=== PATIENT | female | born 1960 | race Caucasian/White ===

== ENCOUNTER 2021-10-26 09:34 | Emergency (ER) | payer BC ==
[2021-10-26 10:46] LABS: Urine Blood Trace-intact (Negative); Urine Glucose Negative (Negative); Urine Protein Negative (Negative)
--- NOTE | 2021-10-26 10:52 | ER ---
Nurse's Notes [facility] Name: Bethany Al Age: 61 yrs Sex: Female : 1960 Arrival Date: 10/26/2021 Time: 09:38 Bed 13 Private MD: Diagnosis: Fever, unspecified;Other malaise and fatigue;Hemochromatosis, unspecified Presentation: 10/26 09:48 Chief complaint: Patient states: saw PCP Saturday for fever and possible UTI. However the ap3 patient's lab results showed no UTI. 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 Patient complains of headaches, off and on fevers and joint pain. Patient had 2 negative COVID tests. Patient states "My friend had giovana mountain spotted fever last year and he said I have the same symptoms he had when he had it.". Coronavirus screen: Client presents with at least one sign or symptom that may indicate coronavirus-19. Ebola Screen: No symptoms or risks identified at this time. Initial Sepsis Screen: Does the patient meet any 2 criteria? No. Patient's initial sepsis screen is negative. Does the patient have a suspected source of infection? No. Patient's initial sepsis screen is negative. Risk Assessment: Do you want to hurt yourself or someone else? Patient reports no desire to harm self or others. Onset of symptoms was October 11, 2021. 09:48 Method Of Arrival: Ambulatory ap3 09:48 Acuity: BRAD 4 ap3 10:35 Acuity: BRAD 3 iw Triage Assessment: 09:55 General: Appears in no apparent distress. Behavior is calm, cooperative, appropriate ap3 for age. Pain: Complains of pain in all over joint pain. Neuro: Level of Consciousness is awake, alert, obeys commands, Oriented to person, place, time, situation, Appropriate for age Moves all extremities. Speech is normal. Cardiovascular: Patient's skin is warm and dry. Respiratory: Airway is patent Respiratory effort is even, unlabored, Respiratory pattern is regular, symmetrical. Historical: - Allergies: 09:53 No Known Allergies; ap3 - Home Meds: 09:53 None [Active]; ap3 - PMHx: 09:53 Hemochromatosis; ap3 - Immunization history:: Client reports receiving the 2nd dose of the Covid vaccine. - Social history:: Smoking status: Patient/guardian denies using tobacco. Screenin:55 Abuse screen: Denies threats or abuse. Nutritional screening: No deficits noted. ap3 Tuberculosis screening: No symptoms or risk factors identified. 12:55 Fall Risk None identified. iw Assessment: 11:40 General: Appears in no apparent distress. comfortable, Behavior is calm, cooperative. ww Neuro: Booker Agitation-Sedation Scale (RASS): 0 - Alert and Calm Level of Consciousness is awake, alert, obeys commands, Oriented to person, place, time, situation, Speech is normal. Cardiovascular: Capillary refill < 3 seconds Patient's skin is warm and dry. Respiratory: Airway is patent Respiratory effort is even, unlabored, Respiratory pattern is regular, symmetrical. Derm: No signs and/or symptoms reported regarding the dermatologic system. Skin is healthy with good turgor. Musculoskeletal: Circulation, motion, and sensation intact. 12:21 Reassessment: Patient appears in no apparent distress at this time. No changes from previously documented assessment. Patient and/or family updated on plan of care and expected duration. Pain level reassessed. Patient is alert, oriented x 3, equal unlabored respirations, skin warm/dry/pink. Vital Signs: 09:48 BP 136 / 76; Pulse 80; Resp 17; Temp 98.3; Pulse Ox 100% ; Weight 56.7 kg; Height 5 ft. ap3 3 in. (160.02 cm); 09:48 Body Mass Index 22.14 (56.70 kg, 160.02 cm) ap3 ED Course: 09:38 Patient arrived in ED. as 09:52 Triage completed. ap3 09:55 Arm band placed on right wrist. ap3 10:07 Karri Gallego MD is Attending Physician. mynor 10:17 Mine Gordon, RN is Primary Nurse. ww 10:50 Tej Alvarez MD is Referral Physician. mynor 10:58 US Abdomen Limited In Process Unspecified. EDMS 11:25 Inserted saline lock: 22 gauge in right antecubital area, using aseptic technique. zm Blood collected. 11:25 Comprehensive Metabolic Panel Sent. zm 11:25 CBC with Diff Sent. zm 11:28 Chest Single View XRAY In Process Unspecified. EDMS 12:22 Patient has correct armband on for positive identification. Bed in low position. Call ww light in reach. Side rails up X 1. Warm blanket given. 12:54 No provider procedures requiring assistance completed. IV discontinued, intact, iw bleeding controlled, No redness/swelling at site. Pressure dressing applied. Administered Medications: 11:29 Drug: NS 0.9% 500 ml Route: IV; Rate: bolus; Site: right antecubital; ww 11: Drug: Doxycycline 200 mg Route: PO; ww Medication: 12:54 VIS not applicable for this client. iw Outcome: 10:51 Discharge ordered by . mynor 12:54 Discharged to home ambulatory. iw 12:54 Condition: good 12:54 Discharge instructions given to patient, Instructed on discharge instructions, follow up and referral plans. Demonstrated understanding of instructions, follow-up care, medications, Prescriptions given X 1. 12:55 Patient left the ED. iw Signatures: Dispatcher [employer] EDMS Karri Gallego MD MD cha Martinez, Amelia as Williams, Irene, RN RN iw Prokisch, Amanda, RN RN ap3 Mine Gordon RN RN ww Martinez, Zaina zm Corrections: (The following items were deleted from the chart) 09:56 09:48 Chief complaint: Patient states: saw PCP Saturday for fever and possible UTI. ap3 However the patient's lab results showed no UTI. 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 Patient complains of headaches, off and on fevers and joint pain. Patient had 2 negative COVID tests. ap3 : 12:20 General: Appears in no apparent distress. comfortable, Behavior is calm, ww cooperative, ww 12:20 Neuro: Booker Agitation-Sedation Scale (RASS): 0 - Alert and Calm Level of ww Consciousness is awake, alert, obeys commands, Oriented to person, place, time, situation, Speech is normal, ww 12:20 Cardiovascular: Capillary refill < 3 seconds Patient's skin is warm and dry. ww ww : 12:20 Respiratory: Airway is patent Respiratory effort is even, unlabored, Respiratory ww pattern is regular, symmetrical, ww 12:20 Derm: No signs and/or symptoms reported regarding the dermatologic system. Skin ww is healthy with good turgor, ww 12:20 Musculoskeletal: Circulation, motion, and sensation intact. ww ww
--- NOTE | 2021-10-26 10:52 | EDPHYS ---
Physician Documentation [facility] Name: Bethany Al Age: 61 yrs Sex: Female : 1960 Arrival Date: 10/26/2021 Time: 09:38 Bed 13 Private MD: ED Physician Karri Gallego HPI: 10/26 10:47 This 61 yrs old Female presents to ER via Ambulatory with complaints of mynor Fever, Headache. 10:47 The patient reports fever, that was measured at 101 degrees Fahrenheit. Onset: The mynor symptoms/episode began/occurred 8 day(s) ago. Modifying factors: there are no obvious modifying factors. Associated signs and symptoms: Pertinent positives: arthralgias, cough, night sweats. Severity of symptoms: At their worst the symptoms were mild in the emergency department the symptoms are unchanged. The patient has not experienced similar symptoms in the past. Historical: - Allergies: 09:53 No Known Allergies; ap3 - Home Meds: 09:53 None [Active]; ap3 - PMHx: 09:53 Hemochromatosis; ap3 - Immunization history:: Client reports receiving the 2nd dose of the Covid vaccine. - Social history:: Smoking status: Patient/guardian denies using tobacco. ROS: 10:47 Eyes: Negative for injury, pain, redness, and discharge, ENT: Negative for injury, mynor pain, and discharge, Neck: Negative for injury, pain, and swelling, Cardiovascular: Negative for chest pain, palpitations, and edema, Respiratory: Negative for shortness of breath, cough, wheezing, and pleuritic chest pain, Abdomen/GI: Negative for abdominal pain, nausea, vomiting, diarrhea, and constipation, Back: Negative for injury and pain, : Negative for injury, bleeding, discharge, and swelling, MS/Extremity: Negative for injury and deformity, Skin: Negative for injury, rash, and discoloration, Neuro: Negative for headache, weakness, numbness, tingling, and seizure. 10:47 Constitutional: Positive for body aches, chills, fatigue, fever, malaise. Exam: 10:47 Constitutional: This is a well developed, well nourished patient who is awake, alert, mynor and in no acute distress. Head/Face: Normocephalic, atraumatic. Eyes: Pupils equal round and reactive to light, extra-ocular motions intact. Lids and lashes normal. Conjunctiva and sclera are non-icteric and not injected. Cornea within normal limits. Periorbital areas with no swelling, redness, or edema. ENT: Nares patent. No nasal discharge, no septal abnormalities noted. Tympanic membranes are normal and external auditory canals are clear. Oropharynx with no redness, swelling, or masses, exudates, or evidence of obstruction, uvula midline. Mucous membranes moist. Neck: Trachea midline, no thyromegaly or masses palpated, and no cervical lymphadenopathy. Supple, full range of motion without nuchal rigidity, or vertebral point tenderness. No Meningismus. Chest/axilla: Normal chest wall appearance and motion. Nontender with no deformity. No lesions are appreciated. Cardiovascular: Regular rate and rhythm with a normal S1 and S2. No gallops, murmurs, or rubs. Normal PMI, no JVD. No pulse deficits. Respiratory: Lungs have equal breath sounds bilaterally, clear to auscultation and percussion. No rales, rhonchi or wheezes noted. No increased work of breathing, no retractions or nasal flaring. Abdomen/GI: Soft, non-tender, with normal bowel sounds. No distension or tympany. No guarding or rebound. No evidence of tenderness throughout. Back: No spinal tenderness. No costovertebral tenderness. Full range of motion. Skin: Warm, dry with normal turgor. Normal color with no rashes, no lesions, and no evidence of cellulitis. MS/ Extremity: Pulses equal, no cyanosis. Neurovascular intact. Full, normal range of motion. Neuro: Awake and alert, GCS 15, oriented to person, place, time, and situation. Cranial nerves II-XII grossly intact. Motor strength 5/5 in all extremities. Sensory grossly intact. Cerebellar exam normal. Normal gait. Psych: Awake, alert, with orientation to person, place and time. Behavior, mood, and affect are within normal limits. 10:47 Musculoskeletal/extremity: ROM: full active range of motion, full passive range of motion, Circulation is intact in all extremities. Sensation intact. Compartment Syndrome exam of affected extremity: is normal. Joints: All joints appear normal with full range of motion. DVT Exam: No signs of deep vein thrombosis. no pain, no swelling, no tenderness, negative Homans' sign noted on exam, no appreciated bluish discoloration, no erythema, no increased warmth. 10:52 Neck: ROM/movement: is normal, is supple, without pain, no range of motions mynor limitations, no meningismus, no nuchal rigidity, negative Brudzinski's sign, negative Kernig's sign. Vital Signs: 09:48 BP 136 / 76; Pulse 80; Resp 17; Temp 98.3; Pulse Ox 100% ; Weight 56.7 kg; Height 5 ft. ap3 3 in. (160.02 cm); 09:48 Body Mass Index 22.14 (56.70 kg, 160.02 cm) ap3 MDM: 10:08 Patient medically screened. mynor 10:49 Differential diagnosis: viral Infection, bacterial infection, URI, bronchitis, mynor pneumonia. Data reviewed: vital signs, nurses notes, lab test result(s), radiologic studies, plain films. Data interpreted: awake overnight monitor: rate is 80 beats/min, rhythm is regular, Pulse oximetry: on room air is 100 %. Test interpretation: by ED physician or midlevel provider: plain radiologic studies. Counseling: I had a detailed discussion with the patient and/or guardian regarding: the historical points, exam findings, and any diagnostic results supporting the discharge/admit diagnosis, lab results, radiology results, the need for outpatient follow up, for definitive care, a family practitioner. 10/26 10:29 Order name: CBC with Diff; Complete Time: 12:48 mynor 10/26 10:29 Order name: Comprehensive Metabolic Panel; Complete Time: 12:48 mynor 10/26 10:29 Order name: US Abdomen Limited; Complete Time: 12:48 mynor 10/26 10:29 Order name: Chest Single View XRAY; Complete Time: 12:48 mynor 10/26 10:46 Order name: Urine Dipstick-Ancillary; Complete Time: 10:52 EDMS 10/26 10:29 Order name: Urine Dipstick-Ancillary (obtain specimen); Complete Time: 11:04 mynor Administered Medications: 11:29 Drug: NS 0.9% 500 ml Route: IV; Rate: bolus; Site: right antecubital; ww 11:29 Drug: Doxycycline 200 mg Route: PO; ww Disposition Summary: 10/26/21 10:51 Discharge Ordered Location: Home mynor Problem: new mynor Symptoms: have improved mynor Condition: Stable mynor Diagnosis - Fever, unspecified mynor - Other malaise and fatigue mynor - Hemochromatosis, unspecified mynor Followup: mynor - With: Private Physician - When: 2 - 3 days - Reason: Recheck today's complaints, Continuance of care, Re-evaluation by your physician Followup: mynor - With: Tej Alvarez MD - When: 2 - 3 days - Reason: Recheck today's complaints, Continuance of care, Re-evaluation by your physician Discharge Instructions: - Discharge Summary Sheet mynor - Fever, Adult mynor - Hemochromatosis mynor - Fever, Adult, [id number] mynor Forms: - Medication Reconciliation Form mynor - Thank You Letter mynor - Antibiotic Education mynor - Prescription Opioid Use mynor Prescriptions: - Doxycycline Hyclate 100 mg Oral Tablet - take 1 tablet by ORAL route every 12 hours; 20 tablet; Refills: 0, Product mynor Selection Permitted Signatures: Dispatcher [employer] Karri Pena MD MD cha Prokisch, Amanda RN RN ap3 Mine Gordon RN RN ww
[2021-10-26] MEDS ORDERED: DOXYCYCLINE 100 MG CAP PO ONE (10:56)
[2021-10-26] MEDS ORDERED: NA CHLORIDE 0.9% 500 ML ONE (10:56)
--- NOTE | 2021-10-26 11:09 | RAD REPORT ---
EXAM DESCRIPTION: US - Abdomen Exam Limited - 10/26/2021 10:56 am CLINICAL HISTORY: ABD PAIN COMPARISON: Abdomen Pelvis W Contrast dated 04/04/2018 FINDINGS: Negative for cholelithiasis. No gallbladder wall thickening. The common bile duct measures 4 millimeters and is nondilated.Echogenic a subcapsular lesion along the gallbladder fossa in the le ft hepatic lobe corresponds with a hypoattenuating lesion on the CT from 04/04/2018 and is consistent with a hemangioma.No evidence of portal vein thrombosis. IMPRESSION: Negative for cholelithiasis or acute cholecystitis. Liver hemangioma.
--- NOTE | 2021-10-26 11:32 | RAD REPORT ---
EXAM DESCRIPTION: RAD - Chest Single View - 10/26/2021 11:27 am CLINICAL HISTORY: COUGH COMPARISON: No comparisons FINDINGS: Lines: None. Lungs: No evidence of edema or pneumonia. Calcified lung nodules. Pleural: No significant pleural effusions or pneumothorax. Cardiac: The heart size is within normal limits. Bones: No acute fractures. Other: IMPRESSION: No acute cardiopulmonary disease.
[2021-10-26 11:33] LABS: Absolute Lymphocytes (CBC) 0.9 K/uL (0.7-4.9); Lymphocytes % 29.1 % (15.3-44.8); MCV 97.8 fL (80-100); MPV 8.5 fL (7.6-11.3); RBC Red Blood Cell Count 3.78 M/uL (3.86-4.86)
[2021-10-26 11:52] LABS: Bilirubin Total 0.5 mg/dL (0.2-1.0); Potassium 4.1 mmol/L (3.5-5.1); Protein, Total 7.1 g/dL (6.4-8.2)
[2021-10-26 13:08] VITALS: BP 136/76; TEMP 98.3; O2SAT 100
== END 2021-10-26 12:55 | disposition home or self-care (01) ==
LOC: ER 09:34
DX: R50.9 Fever, unspecified (principal); R53.81 Other malaise; R53.83 Other fatigue; E83.119 Hemochromatosis, unspecified
CPT/HCPCS: 85025; 36415; 81003; 80053; 71045; 76705; 99284; J7040